=== PATIENT | female | born 1965 | race Native Hawaiian/Other Pacific Islander ===

== ENCOUNTER 2020-09-11 12:22 | Observation (INO) | payer OTHER ==
[~2020-09-11] VITALS: Ht 167.6 cm; Wt 64.6 kg
[2020-09-11 13:26] VITALS: BP 190/140; TEMP 97.5; Ht 167.6 cm; Wt 64.6 kg
[2020-09-11 13:58] LABS: PLATELET COUNT 366 K/uL (152-353)
[2020-09-11 14:21] LABS: POTASSIUM 3.6 mmol/L (3.6-5.2)
[2020-09-11 20:00] VITALS: BP 151/97; TEMP 99
[2020-09-12] VITALS: BP 156/90; TEMP 97.6
[2020-09-12 04:00] VITALS: BP 152/84; TEMP 97.9
[2020-09-12 07:59] VITALS: BP 149/76; TEMP 98.4
[2020-09-12 08:06] LABS: PLATELET COUNT 358 K/uL (152-353)
[2020-09-12 08:35] LABS: POTASSIUM 3.5 mmol/L (3.6-5.2)
[2020-09-12 11:58] VITALS: BP 169/95; TEMP 98.5
[2020-09-12 15:50] VITALS: BP 153/91; TEMP 98.4
[2020-09-12 20:00] VITALS: BP 143/83; TEMP 98
[2020-09-13] VITALS: BP 116/74; TEMP 98.3
[2020-09-13 04:00] VITALS: BP 114/71; TEMP 98
[2020-09-13 05:04] LABS: PLATELET COUNT 308 K/uL (152-353)
[2020-09-13 05:34] LABS: POTASSIUM 3.5 mmol/L (3.6-5.2)
[2020-09-13 08:00] VITALS: BP 130/76; TEMP 98.5
[2020-09-13 12:00] VITALS: BP 170/96; TEMP 98
== END 2020-09-13 15:17 | disposition home or self-care (01) ==
LOC: MED/SURG 12:22
PROVIDERS: ADMIT Family Medicine; ATTEND Family Medicine
PROC: 2W2NX4Z Dressing of Right Upper Leg using Bandage (ICD-10-PCS; principal; 2020-09-11)
DX: T24.311A Burn of third degree of right thigh, initial encounter (principal); E03.8 Other specified hypothyroidism; Z91.19 Patient's noncompliance with other medical treatment and regimen; I16.0 Hypertensive urgency; E87.8 Other disorders of electrolyte and fluid balance, not elsewhere classified; T21.25XA Burn of second degree of buttock, initial encounter; T31.0 Burns involving less than 10% of body surface; X08.8XXA Exposure to other specified smoke, fire and flames, initial encounter; Y92.89 Other specified places as the place of occurrence of the external cause; F81.89 Other developmental disorders of scholastic skills
CPT/HCPCS: 36415; 80053; 81000; 82550; 82553; 83735; 84100; 84132; 84439; 84443; 84480; 85027; 85610; 87040; 87077; 87086; 87088; 87186; 90715; 96365; 96367; 96372; 96375; 99220; G0378; G0379; J2270; J2405; J3490